=== PATIENT | female | born 1955 | race Caucasian/White ===

== ENCOUNTER 2016-05-31 17:28 | Inpatient (IN) | payer OTHER ==
[~2016-05-31] VITALS: Ht 154.9 cm; Wt 120.9 kg
--- NOTE | ~2016-05-31 | ST ---
[place], [place] EXERCISE STRESS TEST REPORT NAME: [facility]: [id number] UN[facility] #: [id number] ROOM: 507 DOCTOR: TY PROCTOR,MORENITA BIRTHDATE: [birth year] DOS: 06/02/2016 LEXISCAN STRESS TEST REASON FOR TEST: Evaluation of chest pain. PHYSICAL EXAMINATION NECK: Supple. LUNGS: Clear anteriorly. HEART: Irregular. PROTOCOL: Lexiscan protocol. Maximum heart rate of 131, peak blood pressure 170/94. SYMPTOMS: The patient is chest pain free. EKG: Resting EKG showed atrial fibrillation with inferior ST-T changes. Stress EKG showed no new ischemia, underlying atrial fibrillation. CONCLUSION: Clinically, the patient is chest pain free. EKG, no new ischemia compared to baseline. POST-STRESS COMPLICATIONS: None. The patient received total of 0.4 mg Lexiscan. MORENITA CRAWFORD MD CM:STRESS:EXERCISE STRESS TEST REPORT [id number] MORENITA CRAWFORD MD
--- NOTE | ~2016-05-31 | PR ---
[place], [place] PROGRESS NOTE NAME: PIPER KAPADIA UNIT #: [id number] ROOM: 507 DOCTOR: MORENITA CRAWFORD MD BIRTHDATE: [birth year] DOS: 06/02/2016 REASON FOR VISIT: The patient with atrial fibrillation and chest pain. REVIEW OF SYSTEM: Review of the 8 systems negative except as mentioned above. She denies any nausea, vomiting, or diarrhea. No PND. No orthopnea. No edema. No blurry vision, double vision, or headaches. RHYTHM STRIPS: The patient in atrial fibrillation. PHYSICAL EXAMINATION: VITAL SIGNS: Blood pressure 148/96, pulse 70, respiratory rate is 18. GENERAL: Alert, comfortable, in no acute distress. HEENT: Pupils are round and equal. No jaundice. Tongue was moist. Pharynx was clear. NECK: Supple, no distended neck veins, no carotid bruit. CHEST: Symmetrical, nontender. LUNGS: Clear to auscultation bilaterally. HEART: Irregular. No S3. Grade 1/6 systolic murmur. ABDOMEN: Benign, nontender. Bowel sounds normal. EXTREMITIES: Showed trace to 1+ edema. REVIEW OF DIAGNOSTIC TEST: Her labs, rhythm strips and EKG reviewed. IMPRESSION: 1. Atrial fibrillation with bradycardia. 2. Hypertension, currently stable. 3. Non-morbid obesity. RECOMMENDATIONS: 1. Continue current medications. 2. Lexiscan stress test today to rule out an underlying ischemia. 3. If the stress test is unremarkable, she can be discharged home today and then she will follow with our Cardiology Clinic in 1-2 weeks. [place], [place] PROGRESS NOTE NAME: PIPER KAPADIA UNIT #: [id number] ROOM: 507 DOCTOR: MORENITA CRAWFORD MD BIRTHDATE: [birth year] MORENITA CRAWFORD MD CM:PNTRANS [id number] MORENITA CRAWFORD MD 06/03/16 0510 interface
--- NOTE | ~2016-05-31 | CON ---
[place], [place] REPORT OF CONSULTATION NAME: PIPER KAPADIA UNIT #: [id number] ROOM: 507 DOCTOR: MORENITA CRAWFORD MD BIRTHDATE: [birth year] DOS: 06/01/2016 ADDENDUM CARDIOLOGY CONSULT CONSULTING PHYSICIAN: Dr. Alves. REASON FOR CONSULTATION: Chest pain. I personally examined and assessed the patient today. Her rhythm strips, labs and past medical history reviewed. This note is an addendum to the note dictated by the resident physician, Dr. Arcadio Huynh. His examination and assessment reflects my work. The patient was admitted with intermittent chest pains and history of chronic atrial fibrillation. PHYSICAL EXAMINATION: Focussed cardiac exam showed: NECK: Supple. No distended neck veins. HEART: Irregular rhythm, grade 1/6 systolic murmur. EXTREMITIES: Showed 1+ edema. REVIEW OF DIAGNOSTIC TESTS: Rhythm strips and EKGs reviewed. IMPRESSION: 1. Intermittent chest pains, rule out myocardial infarction. 2. Chronic atrial fibrillation with bradycardia. 3. Obesity. 4. Hypertension. RECOMMENDATIONS: Decrease the Cardizem dose for bradycardia and increase the clonidine for blood pressure control. She is allergic to multiple antihypertensive medications. If the cyclic cardiac enzymes are unremarkable, we will schedule for an exercise nuclear stress test tomorrow. Risk factor modification was discussed. Continue her current medications. [place], [place] REPORT OF CONSULTATION NAME: PIPER KAPADIA UNIT #: [id number] ROOM: 507 DOCTOR: MORENITA CRAWFORD MD BIRTHDATE: [birth year] MORENITA CRAWFORD MD CM:CONSTR:REPORT OF CONSULTATION 2327 06/02/16 1433 interface
[~2016-05-31 17:28] MED LIST: ALDACTONE25 MG PO; ALENDRONATE SOD70 M1 PO; AMBIEN10 M1 PO; AMBIEN10 MG PO; AMOXIL500 MG PO; ASCRIPTIN325 MG PO; ASPIRIN ADULT L81 M2 PO; AUGMENTIN 875875 MG PO; AVELOX400 MG PO; BACTRIM DS 8001 TA1 PO; CARDIZEM CD240 MG PO; CLONIDINE HYDR0.1 MG PO; CLONIDINE0.1 MG PO; COUMADIN2 M1 PO; COUMADIN4 M1 PO; COUMADIN5 MG PO; COUMADIN6 M1 PO; COUMADIN6 M2 PO; CYCLOBENZAPRINE10 MG PO; DARVOCET N 1001 TAB PO; DILTIAZEM 24HR300 MG PO; DILTIAZEM240 M1 PO; EES400 MG PO; FAMILY PHARMACY1 TAB PO; FLEXERIL10 MG PO; FLONASE 0.05% 121 EA NAS; HYDROCODONE BIT1 T11 PO; JANTOVEN2 MG PO; JANTOVEN2.5 MG PO; JANTOVEN4 M1 PO; JANTOVEN5 MG PO; K-DUR 20MEQ20 MEQ PO; KEFLEX500 MG PO; LASIX20 MG PO; LOMOTIL 0.025 M1 TAB PO; MASON NATURAL2000 IU PO; MED FOR HTN; MOTRIN800 MG PO; MULTIVITAMIN1 TAB PO; NORVASC10 MG PO; PHENERGAN W/ DE30 ML PO; PREDNICOT10 MG PO; PREDNICOT20 MG PO; PRILOSEC20 MG PO; PROAIR HFA0.09 MG/AC INH; TESSALON PERLE100 MG PO; TOBRADEX 0.1%-0.5 ML OPH; TOPROL; TOPROL PO; TOPROL XL50 MG PO; ULTRAM50 MG PO; VIBRAMYCIN100 MG PO; VICODIN 5/500 505 MG PO; VICODIN 500 MG-1 TAB PO; VITAMIN D50000 I3 PO; Vicodin 5/500 505 MG PO; ZITHROMAX Z PA250 MG PO; ZOFRAN ODT8 MG PO
[2016-05-31 17:43] VITALS: BP 187/87
[2016-05-31 18:27] LABS: BASO % 0.4 % (0.0-1.0); EOS # 0.1 10*3/uL (0.0-0.4); EOS % 1.7 % (1.0-4.0); HEMATOCRIT 38.7 % (37.0-47.0); HEMOGLOBIN 12.5 g/dl (12.0-16.0); LYMPH # 2.2 10*3/uL (1.3-4.4); LYMPH % 31.6 % (27.0-41.0); MEAN CELL VOLUME 81.8 fl (81.0-99.0); MEAN CORPUSCULAR HGB 26.4 pg (27.0-31.0); MEAN CORPUSCULAR HGB CONC 32.3 g/dl (33.0-37.0); MEAN PLATELET VOLUME 10.4 fl (9.6-12.3); MONO # 0.6 10*3/uL (0.1-1.0); MONO % 8.9 % (3.0-9.0); NEUT % 57.3 % (47.0-73.0); PLATELET COUNT AUTOMATED 254 10*3/uL (130-400); RED BLOOD COUNT 4.73 10*6/uL (4.10-5.10); RED CELL DISTRI WIDTH 15.4 % (0-14.5); WHITE BLOOD COUNT 6.9 10*3/uL (4.8-10.8)
[2016-05-31 18:37] LABS: INTERNATIONAL NORM RATIO 2.8 (2.0-3.5); PROTHROMBIN TIME 30.8 SECONDS (9.0-12.4)
[2016-05-31 18:45] LABS: ALBUMIN 3.8 gm/dl (3.1-4.5); ALKALINE PHOSPHATASE 64 U/L (45-117); BILIRUBIN, TOTAL 0.4 mg/dl (0.2-1.0); BUN 13 mg/dl (7-24); CARBON DIOXIDE 25 mmol/L (21-32); CHLORIDE 108 mmol/L (98-107); EST GLOM FILT AFRICAN AMERICAN > 60 ml/min; GLUCOSE 132 mg/dL (65-99); POTASSIUM 3.6 mmol/L (3.5-5.1); SGOT/AST 11 IU/L (3-35); SGPT/ALT 19 U/L (12-78); SODIUM 143 mmol/L (136-145); TOTAL PROTEIN 7.8 gm/dL (6.4-8.2); TROPONIN I < 0.015 ng/ml (<0.5)
[2016-05-31 19:21] VITALS: BP 162/65
[2016-05-31 20:20] VITALS: BP 156/72
[2016-05-31 20:45] VITALS: BP 154/66
[2016-05-31 21:03] VITALS: BP 183/92
[2016-05-31 21:10] VITALS: BP 154/66
[2016-05-31] MEDS ORDERED: AMBIEN10 M1 PO (21:10)
[2016-06-01] VITALS: BP 157/83
[2016-06-01 00:48] LABS: CPK 61 U/L (26-192)
[2016-06-01 00:51] LABS: CKMB < 0.5 ng/ml (0.5-3.6); TROPONIN I < 0.015 ng/ml (<0.5)
[2016-06-01 05:30] VITALS: BP 152/81
[2016-06-01 06:22] LABS: BASO % 0.6 % (0.0-1.0); EOS # 0.1 10*3/uL (0.0-0.4); EOS % 1.6 % (1.0-4.0); HEMATOCRIT 40.2 % (37.0-47.0); HEMOGLOBIN 12.6 g/dl (12.0-16.0); LYMPH # 2.1 10*3/uL (1.3-4.4); LYMPH % 31.4 % (27.0-41.0); MEAN CELL VOLUME 82.5 fl (81.0-99.0); MEAN CORPUSCULAR HGB 25.9 pg (27.0-31.0); MEAN CORPUSCULAR HGB CONC 31.3 g/dl (33.0-37.0); MEAN PLATELET VOLUME 11.7 fl (9.6-12.3); MONO # 0.5 10*3/uL (0.1-1.0); MONO % 7.5 % (3.0-9.0); NEUT # 3.9 10*3/uL (2.3-7.9); NEUT % 58.8 % (47.0-73.0); PLATELET COUNT AUTOMATED 254 10*3/uL (130-400); RED BLOOD COUNT 4.87 10*6/uL (4.10-5.10); RED CELL DISTRI WIDTH 15.4 % (0-14.5); WHITE BLOOD COUNT 6.7 10*3/uL (4.8-10.8)
[2016-06-01 06:28] LABS: CKMB 0.6 ng/ml (0.5-3.6); CPK 64 U/L (26-192)
[2016-06-01 06:29] LABS: TROPONIN I < 0.015 ng/ml (<0.5)
[2016-06-01 06:52] LABS: INTERNATIONAL NORM RATIO 2.9 (2.0-3.5); PROTHROMBIN TIME 31.9 SECONDS (9.0-12.4)
[2016-06-01 06:56] LABS: BUN 11 mg/dl (7-24); CARBON DIOXIDE 24 mmol/L (21-32); CHLORIDE 107 mmol/L (98-107); CHOLESTEROL 181 mg/dL (<200); EST GLOM FILT AFRICAN AMERICAN > 60 ml/min; FREE T4 1.02 ng/dl (0.76-1.46); GLUCOSE 112 mg/dL (65-99); HDL CHOLESTEROL 48 mg/dl (40-60); LDL CHOLESTEROL 111 mg/dL (9-159); MAGNESIUM 2.5 mg/dL (1.5-2.1); POTASSIUM 3.6 mmol/L (3.5-5.1); SODIUM 143 mmol/L (136-145); TRIGLYCERIDES 111 mg/dl (<150); VLDL CHOLESTEROL 22 mg/dL (6-40)
[2016-06-01 08:00] VITALS: BP 154/66
[2016-06-01 08:01] LABS: FOLIC ACID 13.46 ng/mL (>5.38)
[2016-06-01] MEDS ORDERED: NEURONTIN300 MG PO (09:35)
[2016-06-01] MEDS ORDERED: COUMADIN6 M2 PO (09:36)
[2016-06-01] MEDS ORDERED: COUMADIN0.5 MG PO (09:36)
[2016-06-01 12:10] LABS: CPK 64 U/L (26-192)
[2016-06-01 12:25] LABS: CKMB < 0.5 ng/ml (0.5-3.6); TROPONIN I < 0.015 ng/ml (<0.5)
[2016-06-01 12:33] VITALS: BP 168/76
[2016-06-01 16:07] VITALS: BP 153/54
[2016-06-01 20:00] VITALS: BP 147/55
[2016-06-02] VITALS: BP 157/85
[2016-06-02 06:59] LABS: HEMOGLOBIN A1c 6.5 % (4.8-5.6)
[2016-06-02 07:00] LABS: BASO # 0.1 10*3/uL (0.0-0.1); BASO % 0.8 % (0.0-1.0); EOS # 0.1 10*3/uL (0.0-0.4); EOS % 1.8 % (1.0-4.0); HEMATOCRIT 41.5 % (37.0-47.0); HEMOGLOBIN 13.2 g/dl (12.0-16.0); LYMPH % 31.1 % (27.0-41.0); MEAN CELL VOLUME 81.9 fl (81.0-99.0); MEAN CORPUSCULAR HGB CONC 31.8 g/dl (33.0-37.0); MEAN PLATELET VOLUME 11.3 fl (9.6-12.3); MONO # 0.6 10*3/uL (0.1-1.0); MONO % 8.6 % (3.0-9.0); NEUT # 3.7 10*3/uL (2.3-7.9); NEUT % 57.4 % (47.0-73.0); PLATELET COUNT AUTOMATED 266 10*3/uL (130-400); RED BLOOD COUNT 5.07 10*6/uL (4.10-5.10); RED CELL DISTRI WIDTH 15.4 % (0-14.5); WHITE BLOOD COUNT 6.5 10*3/uL (4.8-10.8)
[2016-06-02 07:11] LABS: BUN 15 mg/dl (7-24); CARBON DIOXIDE 25 mmol/L (21-32); CHLORIDE 108 mmol/L (98-107); EST GLOM FILT AFRICAN AMERICAN > 60 ml/min; GLUCOSE 123 mg/dL (65-99); POTASSIUM 3.9 mmol/L (3.5-5.1); SODIUM 144 mmol/L (136-145)
[2016-06-02 08:00] VITALS: BP 163/97
[2016-06-02 12:00] VITALS: BP 160/80
[2016-06-02 16:00] VITALS: BP 155/89
[2016-06-02] MEDS ORDERED: CLONIDINE HCL0.2 MG PO (17:36)
[2016-06-02] MEDS ORDERED: DILTIAZEM 24HR120 MG PO (17:36)
== END 2016-06-02 18:19 | disposition home or self-care (01) | DRG 313 ==
LOC: ED 17:28 → 5E 19:10 → EDHOLD 19:10 → 5E 20:14
PROVIDERS: Hospitalist; Internal Medicine; Physician Assistant
DX: R07.89 Other chest pain (principal); I11.0 Hypertensive heart disease with heart failure; I50.32 Chronic diastolic (congestive) heart failure; Z68.43 Body mass index [BMI] 50.0-59.9, adult; I48.2 Chronic atrial fibrillation; R73.9 Hyperglycemia, unspecified; E66.9 Obesity, unspecified; E83.41 Hypermagnesemia; E78.1 Pure hyperglyceridemia; Z90.49 Acquired absence of other specified parts of digestive tract; Z98.890 Other specified postprocedural states; Z87.891 Personal history of nicotine dependence; Z88.8 Allergy status to other drugs, medicaments and biological substances; Z79.899 Other long term (current) drug therapy; Z79.01 Long term (current) use of anticoagulants

== ENCOUNTER → 2020-08-29 | Outpatient (CLI) | payer SELFPAY ==
[~2020-08-29] MED LIST changes: +CLONIDINE HCL0.2 MG PO; +COUMADIN0.5 MG PO; +DILTIAZEM 24HR120 MG PO; +NEURONTIN300 MG PO
== END | disposition home or self-care (01) ==
LOC: COVID19 14:49
PROVIDERS: ATTEND Internal Medicine
DX: Z11.52 Encounter for screening for COVID-19 (principal)